=== PATIENT | male | born 1990 | race Caucasian/White ===

== ENCOUNTER 2022-11-24 08:50 | Emergency (ER) | payer MEDICAID ==
[~2022-11-24] VITALS: Ht 170.2 cm; Wt 84.0 kg
[2022-11-24] MEDS ORDERED: SODIUM CHLORIDE 0.9% 1,000 ML IV ONE (09:45)
[2022-11-24] MEDS ORDERED: ONDANSETRON HCL 4MG/2ML INJ IV ONE (09:45)
[2022-11-24 09:53] LABS: HEMOGLOBIN. 15.1 g/dL (14.0-18.0); MEAN CORPUSCULAR HEMOGLOBIN 31.1 pg (28.0-32.0); MEAN CORPUSCULAR VOLUME 88.5 fL (80.0-94.0); PLATELET 180 x1000/uL (130-400); RED BLOOD CELL COUNT 4.85 mill/uL (4.7-6.1); RED CELL DISTRIBUTION WIDTH 13.4 % (11.6-14.6)
[2022-11-24] MEDS ORDERED: MAGNESIUM/ALUMINUM HYDROXIDE/SIMETHICONE 30ML UDC PO ONE (10:00)
[2022-11-24] MEDS ORDERED: ONDANSETRON 4MG ODT PO ONE (10:00)
[2022-11-24] MEDS ORDERED: ACETAMINOPHEN 325MG TABLET PO ONE (10:00)
[2022-11-24] MEDS ORDERED: FAMOTIDINE 20MG TABLET PO ONE (10:00)
[2022-11-24] MEDS ORDERED: DIPHENOXYLATE/ATROPINE 2.5/0.025MG TABLET PO ONE (10:00)
[2022-11-24 10:02] LABS: CHLORIDE 109 mEq/L (98-107)
[2022-11-24 10:16] LABS: CLARITY URINE CLEAR (CLEAR); COLOR URINE YELLOW (YELLOW); KETONES URINE 1+ (NEGATIVE); LEUKOCYTE ESTERASE URINE NEGATIVE (NEGATIVE); NITRITE URINE NEGATIVE (NEGATIVE); OCCULT BLOOD URINE NEGATIVE (NEGATIVE); PROTEIN URINE NEGATIVE (NEGATIVE); SPECIFIC GRAVITY URINE 1.021 (1.005-1.030); UROBILINOGEN URINE 0.2 E.U./dL (0.2-1.0)
[2022-11-24 10:35] LABS: PLATELET ESTIMATE NORMAL
[2022-11-24] MEDS ORDERED: FAMO40TA70 MT (11:14)
[2022-11-24] MEDS ORDERED: DIPH1TAB24 MT (11:14)
[2022-11-24] MEDS ORDERED: MAG-55 MT (11:14)
[2022-11-24] MEDS ORDERED: ONDA4TAB50 MT (11:14)
[2022-11-24 11:51] VITALS: BP 112/73
== END 2022-11-24 11:54 | disposition home or self-care (01) ==
LOC: ER 08:50
DX: R11.2 Nausea with vomiting, unspecified (principal); R19.7 Diarrhea, unspecified; R51.9 Headache, unspecified
CPT/HCPCS: 36415; 80053; 81003; 83690; 85025; 93005; 99284; Q0162; J7030